=== PATIENT | female | born 1955 | race Caucasian/White ===

== ENCOUNTER 2019-12-24 20:26 | Emergency (ER) | payer MEDICARE, SELFPAY ==
--- NOTE | ~2019-12-24 | XR_ITS ---
XR shoulder LT min 2V 12/24/2019 21:26 INDICATION: Left shoulder pain after fall PROCEDURE: 4 views left shoulder COMPARISON: No prior studies for comparison. FINDINGS: There is a nondisplaced fracture of the greater tuberosity. There is anatomic alignment of the acromioclavicular and glenohumeral joints.. The soft tissues appear within normal limits. No for eign bodies are identified. IMPRESSION: 1: Nondisplaced fracture left greater tuberosity. Reviewed, dictated and finalized at location A.
[2019-12-24 20:44] VITALS: BP 116/68; PULSE 105; RESP 20; TEMP 36.6; O2SAT 97
[2019-12-24 23:10] VITALS: BP 127/57; PULSE 89; RESP 13; O2SAT 99
--- NOTE | 2019-12-24 23:26 | ED.GENADULT ---
HPI - General Adult General Chief complaint: Extremity Injury, Upper Stated complaint: left shoulder injury Time Seen by Provider: 12/24/19 23:08 Source: patient History of Present Illness HPI narrative: Patient is a 64 y/o female complaining of left shoulder pain after she fell and landed on left shoulder about 3 hours ago. She states that she tripped over a cord before she fell. She denies hitting her head or having LOC. She has no neck pain, back pain, chest pain or abdominal pain. She is unable to rate her pain. There is no pain radiation. Her pain is worse with movement. Related Data Allergies Allergy/AdvReac Type Severity Reaction Status Date / Time No Known Allergies Allergy Verified 12/24/19 23:10 Review of Systems Constitutional: Constitutional: Denies chills, Denies fever(s), Denies headache(s) and Denies weakness Eyes: Eyes: Denies blurry vision ENT: Denies headache(s) and Denies neck pain Cardiovascular: Cardiovascular: Denies chest pain and Denies dyspnea Respiratory: Respiratory: Denies cough and Denies dyspnea Gastrointestinal: Gastrointestinal: Denies abdominal pain, Denies diarrhea, Denies nausea and Denies vomiting Genitourinary: Genitourinary: Denies hematuria and Denies dysuria Musculoskeletal: Musculoskeletal: Denies back pain, Reports arthralgias (left shoulder pain) and Denies neck pain Neurologic: Denies headache(s) and Denies weakness [facility] Social History Social History Gender identity (if verbalized by the patient): Female Exam Const: General: no acute distress and well developed Orientation/consciousness: oriented to person, oriented to place, oriented to time and patient oriented x3 HENMT: Head: normocephalic Ears: external ears normal General nose exam: Normal external nose present Eyes: General: appearance normal, both eyes and all related structures Conjunctivae: conjunctivae normal Neck: Neck: normal visual inspection and full ROM Chest: Chest palpation & inspection: normal inspection of the chest and no tenderness Resp: Effort & Inspection: normal respiratory effort Auscultation: clear to auscultation bilaterally Cardio: Rate: regular rate Rhythm: regular rhythm GI: GI Palp: No abdominal tenderness and Yes Soft to palpation Skin: General skin exam: normal color and turgor normal Neuro: General: oriented to person, oriented to place, oriented to time and patient oriented x3 Cognition (Neuro): normal cognition Extrem: General: normal to inspection and no pedal edema Left upper extremity: shoulder/upper arm tenderness and other (sling in place) Psych: Appearance: grossly normal Mental Status: mental status grossly normal Affect: normal affect Course Vital Signs Vital signs: Vital Signs Temperature 36.6 C 12/24/19 20:44 Pulse Rate 105 H 12/24/19 20:44 Respiratory Rate 20 12/24/19 20:44 Blood Pressure 116/68 12/24/19 20:44 Pulse Oximetry 97 12/24/19 20:44 Temperature 36.6 C 12/24/19 20:44 Pulse Rate 88 12/25/19 00:00 Respiratory Rate 19 12/25/19 00:00 Blood Pressure 133/88 12/25/19 00:00 Pulse Oximetry 98 12/25/19 00:00 Medical Decision Making Vital Signs Vital Signs: Vital Signs Temperature 36.6 C 12/24/19 20:44 Pulse Rate 105 H 12/24/19 20:44 Respiratory Rate 20 12/24/19 20:44 Blood Pressure 116/68 12/24/19 20:44 Pulse Oximetry 97 12/24/19 20:44 Temperature 36.6 C 12/24/19 20:44 Pulse Rate 88 12/25/19 00:00 Respiratory Rate 19 12/25/19 00:00 Blood Pressure 133/88 12/25/19 00:00 Pulse Oximetry 98 12/25/19 00:00 Discharge Plan Discharge Clinical Impression: Closed fracture of greater tuberosity of humerus Qualifiers: Encounter type: initial encounter Fracture alignment: nondisplaced Laterality: left Qualified Code(s): S42.255A - Nondisplaced fracture of greater tuberosity of left humerus, initial encounter for closed fr
[2019-12-25] VITALS: BP 133/88; PULSE 88; RESP 19; O2SAT 98
== END 2019-12-25 | disposition home or self-care (01) ==
PROVIDERS: Emergency Provider Emergency Medicine; PCP Nurse Practitioner Family
DX: S42.255A Nondisplaced fracture of greater tuberosity of left humerus, initial encounter for closed fracture (principal); W18.09XA Striking against other object with subsequent fall, initial encounter
CPT/HCPCS: 73030; 99284; A9270

== ENCOUNTER 2020-02-13 13:32 | Outpatient (CLI) | payer MEDICARE, SELFPAY ==
--- NOTE | ~2020-02-13 | DEXA_ITS ---
Bone Density Report Name: Mago Rivers Age: 64 Sex: Female Ethnicity: White Date of : 1955 Indication: postmenopausal; height loss; prior fracture; cancer; asthma or emphysema; Referring Provider: RAJINDER, MAHENDRA Study: Bone densitometry was performed. Exam Date: February 13, 2020 Accession number: [id number] Bone Density: Region BMD T-score Z-score Classification AP Spine (L1-L4) 0.909 -1.3 0.4 Osteopenia Femoral Neck (Left) 0.754 -0.9 0.6 Normal Total Hip (Left) 0.795 -1.2 -0.1 Osteopenia Total Hip Bilateral Avg 0.799 -1.2 -0.1 Osteopenia Femoral Neck (Right) 0.732 -1.1 0.4 Osteopenia Total Hip (Right) 0.802 -1.1 0.0 Osteopenia World Health Organization criteria for BMD impression classify patients as: Normal (T-score at or above -1.0), Osteopenia (T-score between -1.0 and -2.5), or Osteoporosis (T-score at or below -2.5). 10-year Fracture Risk(1): Major Osteoporotic Fracture 13% Hip Fracture 1.6% Reported Risk Factors: [place] (), Neck BMD=0.732, BMI=25.7, previous fracture, smoking (1) FRAX(R) Version 3.08. Fracture probability calculated for an untreated patient. Fracture probability may be lower if the patient has received treatment. Clinical Information Provided by Patient: Has had a low trauma fracture Smokes Has the following medical conditions: Asthma or Emphysema, Cancer Patient maximum height was 65 Menopause Age: 47 No regular weight bearing exercise Drinks caffeinated beverages Onset of menses at age 16 Number of children 2 Impression: The patient has low bone mass, based on the Total Spine T-score. The patient has an estimated ten-year risk of hip fracture of 1.6% and an estimated ten-year risk of major fracture of 13%, based on the WHO FRAX algorithm. The patient has risk factors, including: smoking, previous fracture. Discussion: BONE DENSITY IS LOW AT ONE OR MORE SKELETAL SITES. This patient's lowest T-score is low at one or more skeletal sites. It meets the World Health Organization's (WHO) criteria for ?low bone mass? (T-score between -1.0 and -2.5). The patient's 10-year risk of fracture as calculated by FRAX is less than the threshold where pharmacological therapy is recommended by the National Osteoporosis Foundation (NOF). However, all treatment decisions require clinical judgment and consideration of individual patient factors, including patient preferences, comorbidities, previous drug use, risk factors not captured in the FRAX model (e.g., frailty, falls, vitamin D deficiency, increased bone turnover, interval significant decline in bone density) and possible under or overestimation of fracture risk by FRAX. The patient should follow a healthful lifestyle (good nutrition with adequate calcium and vitamin D, and appropriate weight-bearing exercise).
== END 2020-02-13 13:33 | disposition home or self-care (01) ==
LOC: ANHIMG 13:34
PROVIDERS: PCP Nurse Practitioner Family; Visit Provider Nurse Practitioner Family
DX: Z78.0 Asymptomatic menopausal state (principal); M85.80 Other specified disorders of bone density and structure, unspecified site
CPT/HCPCS: 77080

== ENCOUNTER 2020-03-05 15:02 | Observation (INO) | payer MEDICARE, SELFPAY ==
[2020-03-05] VITALS (7 sets, daily range): BP systolic 101–147; BP diastolic 51–110; PULSE 100–126; RESP 15–20; TEMP 36.2–36.9; O2SAT 94–99; BMI 27.9
--- NOTE | ~2020-03-05 | XR_ITS ---
EXAMINATION: XR chest 2V DATE: 03/05/2020 15:39 INDICATION: Asthma, chest pain and chest heaviness. TECHNIQUE: PA and lateral views of the chest were obtained. COMPARISON: Chest radiograph dated 05/09/[address] dated 05/19/2018 FINDINGS: The lungs remain clear with no focal airspace opacities, pulmonary edema, pleural effusion or pneumot horax. The cardiomediastinal silhouette is normal. Calcified mediastinal and right hilar lymph nodes consistent with old granulomatous disease. Mild thoracic spondylosis with chronic mild anterior wedgi ng at a few levels in the lower thoracic spine. IMPRESSION: 1. No acute cardiopulmonary disease. Reviewed, dictated and finalized at location A. NERY SUPERINTENDENT
--- NOTE | ~2020-03-05 | CT_ITS ---
EXAMINATION: CTA chest PE protocol DATE: 03/05/2020 16:09 INDICATION: Chest pain and shortness of breath TECHNIQUE: Computed tomography (CT) pulmonary angiogram of the chest was performed with 100 mL Omnipa que-350 intravenous contrast. Additional 3D reconstructions utilizing coronal maximum intensity proje ction (MIP) were performed. Automated exposure control and iterative reconstruction technique were em ployed. The dose-length product was 840.67 mGy-cm. COMPARISON: 05/19/2018 FINDINGS: Excellent contrast opacification of the pulmonary arteries. There is mild streak artifact from dense contrast in the superior vena cava and right atrium. Mild scattered respiratory motion artifact which does not significantly limit evaluation. No pulmonary embolism. Mild emphysema. Again seen are coupl e tiny poorly defined centrilobular nodules primarily peripherally in the upper lobes, in places with tree-in-bud pattern. No pulmonary edema, pleural effusion or pneumothorax. Heart size is normal. No pericardial effusion. Atherosclerotic coronary artery calcifications. Calcified right hilar and media stinal lymph nodes consistent with old granulomatous disease. No pathologically enlarged thoracic lym phadenopathy. A few splenic calcific a cyst is also consistent with old granulomatous disease. Chroni c mild anterior wedging at T10-T12. IMPRESSION: 1. No pulmonary embolism. 2. Mild emphysema with similar pattern of multiple tiny poorly defined centrilobular nodules in the u pper lobes which could be related to either respiratory bronchitis interstitial lung disease or neck infective bronchiolitis including mycobacterial, viral and fungal organisms. Pattern and chronicity w ould exclude COVID 19 is an etiology. Reviewed, dictated and finalized at location A. ER MELTER IMPRESSION: 1. No pulmonary embolism. 2. Mild emphysema with similar pattern of multiple tiny poorly defined centrilo bular nodules in the upper lobes which could be related to either respiratory b ronchitis interstitial lung disease or neck infective bronchiolitis including m ycobacterial, viral and fungal organisms. Pattern and chronicity would exclude COVID 19 is an etiology.
--- NOTE | 2020-03-05 15:04 | ECG_ITS ---
Measurements Intervals [place] Rate: 126 P: 66 NM: 142 QRS: 52 QRSD: 100 T: 60 QT: 333 QTc: 483 Interpretive Statements SINUS TACHYCARDIA ABNORMAL ECG Electronically Signed On 03-05-2020 15:14:44 HAND BINDER CUTTER by Juan Pink D.O.
[2020-03-05 15:27] LABS: Basophils Percent Auto 0.3 % (0.2-1.2); Eosinophils Percent Auto 0.3 % (0-4.4); Hemoglobin 12.7 g/dL (12.0-15.0); Immature Granulocyte Absolute 0.03 K/mm3 (0.00-0.031); Immature Granulocyte Percent A 0.3 % (0-0.5); Lymphocytes Percent Auto 18.4 % (18.3-44.2); Mean Corpuscular HGB Conc 34.3 g/dl (32-36); Mean Corpuscular Hemoglobin 30.3 pg (26-34); Mean Corpuscular Volume 88.3 fl (80-100); Monocytes Absolute Auto 0.9 K/mm3 (0.1-0.6); Monocytes Percent Auto 7.4 % (2.6-8.5); Neutrophils Absolute Auto 8.4 K/mm3 (1.3-6.7); Neutrophils Percent Auto 73.3 % (45.5-73.1); Platelet Count Result 216 k/mm3 (150-375); Red Blood Count 4.19 M/mm3 (4.2-5.4); Red Cell Distribution Width 14.7 % (11.5-14.5); White Blood Count 11.4 K/mm3 (4.5-10.0)
--- NOTE | 2020-03-05 15:34 | ED.CHESTPAIN ---
HPI - Chest Pain General Chief Complaint: Chest Pain Stated Complaint: chest pressure/neck pressure Time Seen by Provider: 03/05/20 15:22 Source: patient History of Present Illness HPI narrative: 65-year-old female presents to emergency department for chest pressure that started about 130 this afternoon. Patient states she feels like there is something sitting on her chest. She states she has never had this in the past before. She does report some shortness of breath. No fever or chills. No nausea or vomiting. No abdominal pain. She has not taken anything for the pressure. Related Data Home Medications Medication Instructions Recorded Confirmed albuterol sulfate [ProAir HFA] 1 puff INHALATION Q4-6H PRN 03/05/20 03/05/20 alprazolam 0.5 mg PO BID PRN 03/05/20 03/05/20 amlodipine 5 mg PO DAILY 03/05/20 03/05/20 chlorthalidone 25 mg PO DAILY 03/05/20 03/05/20 cilostazol 100 mg PO BID 03/05/20 03/05/20 lamotrigine 150 mg PO DAILY 03/05/20 03/05/20 lisinopril 30 mg PO DAILY 03/05/20 03/05/20 omeprazole 20 mg PO DAILY 03/05/20 03/05/20 potassium chloride 10 meq PO DAILY 03/05/20 03/05/20 tiotropium bromide [Spiriva with 1 cap INHALATION DAILY 03/05/20 03/05/20 HandiHaler] trazodone 150 mg PO HS 03/05/20 03/05/20 Allergies Allergy/AdvReac Type Severity Reaction Status Date / Time No Known Allergies Allergy Verified 03/05/20 15:27 Review of Systems Review of Systems: Narrative: CONSTITUTIONAL: Denies fever, chills, or sweats. EYES: Denies visual changes, redness, or discharge. ENT: Denies rhinorrhea, congestion, sore throat, or otalgia. CARDIOVASCULAR: Reports chest pain and palpitations RESPIRATORY: Reports shortness of breath GASTROINTESTINAL: Denies abdominal pain, nausea, vomiting, or diarrhea. GENITOURINARY: Denies dysuria or hematuria. SKIN: Denies rash or itching. MUSCULOSKELETAL: Denies back pain, joint pain, or myalgia. NEUROLOGIC: Denies headache, numbness, dizziness, or weakness. PSYCHIATRIC: Denies anxiety or depression. All systems reviewed & are unremarkable except as noted in HPI and below (ROS) [facility] Family History Family History (Updated 03/05/20 @ 22:41 by Jessica Johnson RN) Father Cardiac abnormality Peripheral arterial disease Sibling Thyroid cancer Breast cancer Diverticulitis Social History Social History Smoking packs per day: 1 Smoking cigarettes per day: 20.0 Years smoked: 40 Smoking pack-years: 40.00 Smoking status: Current every day smoker Tobacco type: cigarettes Alcohol intake: current Drinks per week: 1 Substance use: never Gender identity (if verbalized by the patient): Female Spiritual care concerns: No Exam Narrative: Exam Narrative: GENERAL: Well-appearing, well-nourished, and in no acute distress. HEAD: Normocephalic, atraumatic. EYES: PERRLA and EOMI. ENT: Nares clear, no rhinorrhea or epistaxis. Mucous membranes moist. NECK: Supple. CHEST: Clear to auscultation. No respiratory distress. HEART: Tachycardia, 3 out of 6 systolic murmur, normal peripheral pulses. ABDOMEN: Soft, nontender, nondistended, normal active bowel sounds. EXTREMITIES: Normal range of motion. No edema. SKIN: Warm, dry, no rash. NEURO: No focal deficits. Alert and oriented x3. PSYCH: Normal mood and affect. Course Reevaluation(s) Reevaluation #1: 1720 -reevaluated patient, no current chest pain. Heart rate still in the low 100s. Will give fluids. 1909 - re-evaluated pt, no current CP. Patient did have a slight increase in troponin. Patient states she has not had a cardiac evaluation in a while. Since patient does not have any chest pain, will hold on anticoagulation at this time. Patient benefit from observation further evaluation and trending the troponin. Consultations Consultation #1: 1925 - discussed case with hospitalist, accepts OBS Vital Signs Vital signs: Vital Signs Temperature 36.4 C
[2020-03-05 15:37] LABS: INR 0.9; Partial Thromboplastin Time 27.8 SECONDS (22.3-36.8); Prothrombin Time 12.3 Seconds (11.1-14.7)
[2020-03-05 15:38] LABS: Anion Gap 13 mmol/L (8-16); Blood Urea Nitrogen 12 mg/dL (7-17); Calcium 9.9 mg/dL (8.4-10.2); Carbon Dioxide 24 mmol/L (22-30); Chloride 97 mmol/L (98-107); Estimated CRCL calculation 54 ml/min; Estimated Glomerular Filt Rate > 60; Glucose 127 mg/dL (65-105); Potassium 3.3 mmol/L (3.4-5.0); Sodium 134 mmol/L (137-145)
[2020-03-05] MEDS: NITROGLYCERIN SL 0.4 MG TABLET SUBLINGUAL (15:42)
[2020-03-05] MEDS: ASPIRIN 81 MG CHEWABLE TABLET 324 MG PO (15:42)
[2020-03-05 15:50] LABS: Troponin I 0.016 ng/mL (0.000-0.034)
[2020-03-05 16:17] LABS: NT Pro B Type Natriuretic Pept 65 PG/ML (5-100)
[2020-03-05] MEDS: SODIUM CHLORIDE 0.9% IV 1,000 ML 999 ML IV CONT (17:33)
--- NOTE | 2020-03-05 20:39 | PC.NURSE ---
Called to give IMU nurse report and she will be calling back.
--- NOTE | 2020-03-05 21:52 | ADMGEN ---
This patient, Mago Rivers, was admitted to IMU Room 204-01. Patient/family oriented to hospital policies and general routines including ID bracelet, bed and alarms, visiting hours, pain management, procedures, bathroom and other care routines, personal items, smoking policy, room service/diet, and visiting hours. Information on how to activate the Rapid Response Team has been discussed. Patient/Family are encouraged to report perceived risks to care and to ask questions if they do not understand what they are told or what they should do.
--- NOTE | 2020-03-05 21:59 | PM.IMHP ---
H&P: HPI History of Present Illness Date/Time: 03/05/20 21:59 Chief complaint: chest pain, unspecified Narrative: Mago Rivers is a 65 year old female with past medical history COPD, CAD, CAD, anxiety, hypertension, GERD, recent left shoulder fracture 2 months ago presents to the ED with complaints of chest pain. Where today she went to [place] which she walks around this is the most activity she has done in some time. Afterward she had lunch and felt a burning. burning radiating to her neck and she felt a pressure-like sensation on her chest around 1:30 p.m. She went to the hospital by 3:00 p.m. and the symptoms abated after medications given in the ED. Patient was given aspirin 324, Nitrostat. patient's plumbing and heating contractor is Dr. Sparks at [place]. she is on a couple months ago and was told there was a leaky valve that he is following routine echocardiograms. Of note patient also smokes pack a day, has family history of heart disease father had a leaky valve. Patient denies fever, chills, nausea, vomiting, diarrhea, syncope, lightheadedness. In the ED: Lab stable, EKG showed sinus tach at 126 bpm, negative chest x-ray, negative PE on CTA which did show emphysema like changes. patient's troponins have been slowly rising 0.016 to 0.06. In the ED chest pain resolved however troponin slowly rising. Patient move for observation for chest pain. Review of Systems Review of Systems: Narrative: Constitutional: No Fever, No Chills, No Night Sweats, No Fatigue, No Malaise ENT/Mouth: No Hearing Changes, No Ear Pain, No Nasal Congestion, No Sinus Pain, No Hoarseness, No sore throat, No Rhinorrhea, No Swallowing Difficulty Eyes: No Eye Pain, No Redness, No Vision Changes Cardiovascular: endorses chest pain radiating to neck. No Palpitations, No Dyspnea on Exertion, No Orthopnea, No Claudication, No Edema Respiratory: Endorses chronic cough from COPD. No Wheezing, No Shortness of Breath Gastrointestinal: No Nausea, No Vomiting, No Diarrhea, No Constipation, No Abdominal Pain, No Heartburn, No Hematochezia, No Melena Genitourinary: No Dysuria, No Urinary Frequency, No Hematuria, No Urinary Incontinence, No Urgency Musculoskeletal: No Arthralgias, No Myalgias, No Joint Swelling, No Joint Stiffness. patient endorses chronic shoulder pain and back pain. Skin: No Skin Lesions, No Pruritis, No Hair Changes Neuro: No Weakness, No Numbness, No Paresthesias, No Loss of Consciousness, No Syncope, No Dizziness, No Headache Psych: No Anxiety/Panic, No Depression, No Insomnia Heme: No Bruising, No Bleeding Lymph: No Adenopathy Endocrine: No Polyuria, No Polydipsia, No Temperature Intolerance [facility] Past Medical History Medical History (Updated 03/06/20 @ 02:49 by Richard Salguero DO) Anxiety Brain aneurysm COPD (chronic obstructive pulmonary disease) with emphysema Essential hypertension GERD (gastroesophageal reflux disease) Insomnia Peripheral artery disease Shoulder fracture, left Surgical History Surgical History (Updated 03/06/20 @ 02:36 by Richard Salguero DO) S/P coil embolization of cerebral aneurysm S/P mastectomy, bilateral Family History Family History Father Cardiac abnormality Peripheral arterial disease Sibling Thyroid cancer Breast cancer Diverticulitis Social History Social History (Updated 03/06/20 @ 02:38 by Richard Salguero DO) Smoking packs per day: 1 Smoking cigarettes per day: 20.0 Years smoked: 40 Smoking pack-years: 40.00 Smoking status: Current every day smoker Tobacco type: cigarettes Alcohol intake: current Drinks per week: 1 Substance use: never Living arrangements: alone Occupation/Education: other Additional occupation/education comments: disabled Gender identity (if verbalized by the patient): Female Spiritual care concerns: No Meds Home Medications and Allergies H
[2020-03-05 22:01] LABS: Troponin I 0.069 ng/mL (0.000-0.034)
[2020-03-05] MEDS: traZODone HCL 50 MG TABLET 150 MG PO (23:13)
[2020-03-06] VITALS: BP 110/52; PULSE 90; PULSE 93; RESP 18; TEMP 36.2; O2SAT 97
[2020-03-06 04:00] VITALS: BP 134/54; PULSE 92; PULSE 96; RESP 16; TEMP 36.2; O2SAT 96
[2020-03-06] MEDS: POTASSIUM CHLORIDE 20 MEQ PACKET (FOR LIQUID) 40 MEQ PO (04:46)
[2020-03-06 05:18] LABS: Anion Gap 7 mmol/L (8-16); Blood Urea Nitrogen 8 mg/dL (7-17); Calcium 9.4 mg/dL (8.4-10.2); Carbon Dioxide 28 mmol/L (22-30); Chloride 102 mmol/L (98-107); Estimated CRCL calculation 54 ml/min; Estimated Glomerular Filt Rate > 60; Glucose 100 mg/dL (65-105); Potassium 3.5 mmol/L (3.4-5.0); Sodium 137 mmol/L (137-145)
[2020-03-06 05:35] LABS: Troponin I 0.071 ng/mL (0.000-0.034)
[2020-03-06 06:00] VITALS: PULSE 89
[2020-03-06] MEDS: cilostazoL 100 MG TABLET PO (06:45)
--- NOTE | 2020-03-06 07:12 | ECG_ITS ---
Measurements Intervals [place] Rate: 93 P: 61 GA: 144 QRS: 34 QRSD: 93 T: 57 QT: 371 QTc: 463 Interpretive Statements SINUS RHYTHM MINIMAL Q WAVES- INFERIOR LEADS BORDERLINE ECG Electronically Signed On 03-06-2020 9:26:15 BLOCK GREASER by Juan Pink D.O.
[2020-03-06 08:00] VITALS: BP 127/51; PULSE 88; PULSE 91; RESP 14; TEMP 36.2; O2SAT 98
[2020-03-06] MEDS: POTASSIUM CHLORIDE 10 MEQ TABLET.ER PO (08:42)
[2020-03-06] MEDS: amLODIPine BESYLATE 5 MG TABLET PO (08:42)
[2020-03-06] MEDS: PANTOPRAZOLE 40 MG TABLET PO (08:42)
[2020-03-06] MEDS: lisinopriL 10 MG TABLET 30 MG PO (08:42)
[2020-03-06] MEDS: CHLORTHALIDONE 25 MG TABLET PO (08:42)
[2020-03-06] MEDS: lamoTRIgine 25 MG TABLET 50 MG PO (08:42)
[2020-03-06] MEDS: lamoTRIgine 100 MG TABLET PO (08:42)
[2020-03-06] MEDS: HYDROcodone/acetaminophen (*CRX) 5-325 MG TABLET 1 TAB PO (08:43)
[2020-03-06 10:00] VITALS: PULSE 91
[2020-03-06] MEDS: BENZONATATE 100 MG CAPSULE PO (10:17)
[2020-03-06 12:00] VITALS: BP 111/43; PULSE 88; PULSE 94; RESP 16; TEMP 36.5; O2SAT 96
--- NOTE | 2020-03-06 16:06 | PM.DS ---
DS: Admitting Diagnosis Admitting Diagnosis Admitting Diagnosis: chest pain, unspecified DS: Discharge Diagnosis Discharge Diagnosis (1) Chest pain: Qualifiers: Chest pain type: unspecified Qualified Code(s): R07.9 - Chest pain, unspecified Code(s): R07.9 - Chest pain, unspecified Status: Acute (2) Essential hypertension: Code(s): I10 - Essential (primary) hypertension Status: Acute (3) COPD (chronic obstructive pulmonary disease) with emphysema: Qualifiers: Emphysema type: unspecified Qualified Code(s): J43.9 - Emphysema, unspecified Code(s): J43.9 - Emphysema, unspecified Status: Acute (4) Anxiety: Code(s): F41.9 - Anxiety disorder, unspecified Status: Acute (5) Troponin level elevated: Code(s): R77.8 - Other specified abnormalities of plasma proteins Status: Acute DS: Summary Hospital Course Reason for hospitalization: Chest pain Hospital Course: Mago Rivers is a 65 year old female with past medical history COPD, CAD, CAD, anxiety, hypertension, GERD, recent left shoulder fracture 2 months ago presents to the ED with complaints of chest pain. Where today she went to [place] which she walks around this is the most activity she has done in some time. Afterward she had lunch and felt a burning. burning radiating to her neck and she felt a pressure-like sensation on her chest around 1:30 p.m. She went to the hospital by 3:00 p.m. and the symptoms abated after medications given in the ED. Patient was given aspirin 324, Nitrostat. Her symptoms are concerning for angina, her troponin was only mildly elevated and her EKG did not show acute segment changes. This morning she is completely asymptomatic and anxious to go home, she decided to leave against medical advise before cardiology was able to see her, I explained the risks of leaving AMA including sudden , she verbalized understaging. 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 Status at Discharge Cognitive/behavioral status at discharge: Alert and oriented. Functional status at discharge: independent ambulation Overall status at discharge: patient is back to baseline Time Spent with Patient Time attestation: Total time spent providing and/or coordinating discharge services: Time spent: Greater than 30 minutes Exam Const: General: cooperative and comfortable Eyes: Pupils: Equal, round and reactive pupils present Neck: Neck: supple Resp: Effort & Inspection: normal respiratory effort and able to speak in complete sentences Cardio: Jugular venous distension: no JVD Rate: regular rate Rhythm: regular rhythm Heart sounds: S1 normal heart sound present and S2 normal heart sound present GI: Inspection: normal to inspection GI Palp: Yes Soft to palpation Auscultation: normal bowel sounds Skin: General skin exam: no rashes or lesions noted Neuro: General: patient oriented x3, moves all extremities and no focal motor deficits DS: Data Data Completed and Pending Labs on day of discharge: Labs from last 24 hours 03/06/20 03/06/20 03/05/20 04:34 04:34 21:19 Sodium 137 Potassium 3.5 Chloride 102 Carbon Dioxide 28 Anion Gap 7 L BUN 8 Creatinine 0.80 Estim Creat Clear Calc 54 Estimated GFR > 60 Glucose 100 Calcium 9.4 Troponin I 0.071 H* 0.069 H* NT-Pro-B Natriuret Pep 03/05/20 03/05/20 18:25 15:20 Sodium Potassium Chloride Carbon Dioxide Anion Gap BUN Creatinine Estim Creat Clear Calc Estimated GFR Glucose Calcium Troponin I 0.060 H* D NT-Pro-B Natriuret Pep 65 Discharge Plan Discharge Attending physician on discharge: Óscar Villanueva Consulting providers: Heena Starks Discharging Clinician: Óscar Villanueva Patient Disposition: Left Against Medical Advice Patient Instructions: Chest Pain (DC), How to Stop Smoking (DC)
== END 2020-03-06 14:16 | disposition left against medical advice (07) ==
LOC: ANHED 19:34 → ANHIMU 19:50
PROVIDERS: Admitting Provider Student in an Organized Health Care Education/Training Program; Emergency Provider Emergency Medicine; PCP Nurse Practitioner Family; Visit Provider Student in an Organized Health Care Education/Training Program
DX: R07.9 Chest pain, unspecified (principal); R06.02 Shortness of breath; F17.210 Nicotine dependence, cigarettes, uncomplicated; R77.8 Other specified abnormalities of plasma proteins; E87.6 Hypokalemia; R94.31 Abnormal electrocardiogram [ECG] [EKG]; R91.8 Other nonspecific abnormal finding of lung field; G47.00 Insomnia, unspecified; J44.9 Chronic obstructive pulmonary disease, unspecified; I25.10 Atherosclerotic heart disease of native coronary artery without angina pectoris; F41.9 Anxiety disorder, unspecified; I10 Essential (primary) hypertension; K21.9 Gastro-esophageal reflux disease without esophagitis; Z87.81 Personal history of (healed) traumatic fracture; Z82.49 Family history of ischemic heart disease and other diseases of the circulatory system; Z86.79 Personal history of other diseases of the circulatory system
CPT/HCPCS: 36415; 71046; 71275; 80048; 83880; 84484; 85025; 85610; 85730; 93005; 96360; 99285; A9270; G0378; J7030; Q9967

== ENCOUNTER 2020-03-11 16:20 | Outpatient (CLI) | payer MEDICARE, SELFPAY ==
--- NOTE | ~2020-03-11 | MR_ITS ---
EXAMINATION: MR shoulder LT wo con DATE: 03/11/2020 17:32 INDICATION: Left shoulder pain with fracture of the greater tuberosity. TECHNIQUE: Magnetic resonance imaging (MRI) of the left shoulder was performed without intravenous co ntrast. Sequences included axial PD-weighted FS FSE, coronal oblique PD-weighted FS FSE, coronal obli que T2-weighted FS FSE, sagittal PD-weighted FS FSE, and sagittal T1-weighted SE. COMPARISON: None. FINDINGS: Both of the oblique sagittal sequences and each of the repeated sequences are moderately limited by m otion artifact. Coracoacromial arch: The acromion undersurface is curved in morphology (type II). The coracoacromial ligament is normal. M inimal acromioclavicular osteoarthritis. Rotator cuff: Mild tendinopathy at the posterior supraspinatus and conjoined portion of the supraspinatus and infra spinatus tendons without discrete tear. The more posterior infraspinatus tendon and teres minor tendo n are normal. The subscapularis tendon is normal. Normal rotator cuff muscle bulk and signal. Biceps tendon, glenoid labrum and glenohumeral cartilage: Long head of the biceps tendon is normal. Normal anterosuperior sublingual foramen. There is a tear o f the 12:00-10:30 position of the superior to posterior superior labrum. Glenohumeral cartilage appea rs normal. Fluid: Physiologic amount of fluid in the glenohumeral joint and biceps tendon sheath. No loose osteochondra l bodies. Small amount of fluid in the subacromial/subdeltoid bursa consistent with mild bursitis. Bones: There is prominent edema underlying the nondisplaced fracture of the greater tuberosity. Otherwise no rmal marrow signal. IMPRESSION: 1. Persistent prominent marrow edema surrounding the nondisplaced greater tuberosity fracture. Could consider CT for further evaluation of degree of osseous healing as clinically indicated. 2. Mild tendinopathy without discrete tear of the posterior supraspinatus and conjoined portion of th e supraspinatus and infraspinatus tendons which are attached to the nondisplaced greater tuberosity f racture fragment. 3. SLAP tear/degeneration at the superior to posterior superior glenoid labrum. 4. Small amount of fluid in the subacromial/subdeltoid bursa likely representing reactive bursitis re lated to the fracture. Reviewed, dictated and finalized at location A. A ACCOUNT EXECUTIVE IMPRESSION: 1. Persistent prominent marrow edema surrounding the nondisplaced greater tuber osity fracture. Could consider CT for further evaluation of degree of osseous h ealing as clinically indicated. 2. Mild tendinopathy without discrete tear of the posterior supraspinatus and c onjoined portion of the supraspinatus and infraspinatus tendons which are attac hed to the nondisplaced greater tuberosity fracture fragment. 3. SLAP tear/degeneration at the superior to posterior superior glenoid labrum. 4. Small amount of fluid in the subacromial/subdeltoid bursa likely representin g reactive bursitis related to the fracture.
== END 2020-03-11 16:21 | disposition home or self-care (01) ==
PROVIDERS: PCP Nurse Practitioner Family; Visit Provider Orthopaedic Surgery
DX: S42.255D Nondisplaced fracture of greater tuberosity of left humerus, subsequent encounter for fracture with routine healing (principal); X58.XXXD Exposure to other specified factors, subsequent encounter
CPT/HCPCS: 73221

== ENCOUNTER 2020-03-14 11:12 | Outpatient (NON) | payer MEDICARE, SELFPAY ==
[2020-03-15 21:18] LABS: SARS-CoV-2 RNA PCR Negative
== END 2020-03-14 11:13 ==
LOC: ANHCOVIDDT 11:14
PROVIDERS: PCP Nurse Practitioner Family; Visit Provider Nurse Practitioner Family
DX: Z20.828 Contact with and (suspected) exposure to other viral communicable diseases (principal); R05 Cough; R06.2 Wheezing
CPT/HCPCS: 87635; C9803; U0003